=== PATIENT | female | born 1965 | race Caucasian/White ===

== ENCOUNTER 2017-09-10 17:25 | Emergency (ER) | payer BC, MEDICARE ==
[~2017-09-10] VITALS: Ht 165.1 cm; Wt 72.0 kg
[~2017-09-10 17:25] MED LIST: AMIT8CAP6 PO; AMOX500C PO; BACL10TA PO; CIPR750T2 PO; DEPO150I IM; DOXE25CA2 PO; FLUO10CA5 PO; FLUO20CA4 PO; LACTCAP8 PO; METR-1 PO; OMEP40CA2 PO; OXYBXL10 PO; SIMV20TA PO
[2017-09-10 17:32] VITALS: BP 142/87; PULSE 78; RESP 18; TEMP 98; O2SAT 100
[2017-09-10] MEDS ORDERED: PANT40TA3 PO (18:17)
[2017-09-10] MEDS ORDERED: FLUO40CA PO (18:17)
[2017-09-10] MEDS ORDERED: TOLT1TAB16 PO (18:17)
[2017-09-10] MEDS ORDERED: DICL50TA PO (18:17)
[2017-09-10] MEDS ORDERED: HYDR-755 PO (18:17)
[2017-09-10] MEDS ORDERED: LEVOTAB PO (18:17)
[2017-09-10] MEDS ORDERED: SODIUM CHLOR 0.9% 1000 ML INJ 1,000 ML IV SCH (18:27)
[2017-09-10] MEDS ORDERED: METOCLOPRAMIDE HCL 10 MG/2 ML VIAL IV PUSH ONE (18:30)
[2017-09-10] MEDS ORDERED: MORPHINE SULFATE 4 MG/ML INJ IV PUSH ONE ×2 (18:30→20:15)
[2017-09-10] MEDS ORDERED: SODIUM CHLORIDE 0.9% FLUSH 10 ML FLUSH IV FLUSH PRN (18:30)
--- NOTE | 2017-09-10 18:33 | PD ---
HPI Chief Complaint: Abdominal Pain Time Seen by Provider: 18:20 Travel History International Travel<30 days: No Contact w/Intl Traveler<30days: No Traveled to known affect area: No History of Present Illness HPI 52-year-old female presents for evaluation of abdominal pain. Symptoms started at 11 AM. The pain is sharp, constant, associated with nausea. She reports that she had a large bowel movement this afternoon and there were streaks of bright red blood in her bowel movement. Denies vomiting, fevers or chills, flank pain, chest pain or shortness of breath. She reports that she had a colonoscopy in 2016 which revealed polyps and diverticulosis and no other abnormalities. She has no other complaints at this time. PFSH Past Medical History Hx Anticoagulant Therapy: No Asthma: Yes (SEASONAL) Cardiovascular Problems: No Chemotherapy: No Cerebrovascular Accident: No Diabetes: No GERD: Yes Respiratory: No ?: Not : 2 Para: 2 Miscarriage: 0 : 0 Past Surgical History Abdominal Surgery: Yes (POLYP REMOVED) Hysterectomy: No Other Surgery: Yes (MASS REMOVED FROM THYROID) Social History Alcohol Use: Yes (SOCIALLY) Tobacco Use: No Substance Use: No Allergies-Medications (Allergen,Severity, Reaction): Coded Allergies: No Known Allergies (Unverified Allergy, Unknown, 09/10/17) Reported Meds & Prescriptions Reported Meds & Active Scripts Active Probiotic (Lactobacillus Acidophilus) 1 Cap Cap 1 Cap PO TIDAC Hydrocodone-Acetaminophen 5-325 mg Tab 1 Tab PO Q6H PRN Phenergan (Promethazine HCl) 25 Mg Tablet 25 Mg PO Q6H PRN Ciprofloxacin (Ciprofloxacin HCl) 750 Mg Tab 750 Mg PO BID 10 Days Flagyl (Metronidazole) 500 Mg Tab 500 Mg PO TID 10 Days Reported Levocetirizine 5 Mg Tab 5 Mg PO DAILY Diclofenac Potassium 50 Mg Tab 50 Mg PO BID Tolterodine (Tolterodine Tartrate) 2 Mg Tab 2 Mg PO DAILY Pantoprazole (Pantoprazole Sodium) 40 Mg Tab 40 Mg PO DAILY Hydroxyzine HCl 10 Mg Tab 10 Mg PO BID NEB Fluoxetine (Fluoxetine HCl) 40 Mg Cap 40 Cap PO DAILY Omeprazole 40 Mg Cap 40 Mg PO DAILY Ditropan XL 24 HR (Oxybutynin Chloride) 10 Mg Tab 10 Mg PO DAILY Doxepin (Doxepin HCl) 25 Mg Cap 25 Mg PO BID Simvastatin 20 Mg Tab 20 Mg PO DAILY Baclofen 10 Mg Tab 10 Mg PO TID Amitiza (Lubiprostone) 8 Mcg Cap 8 Mg PO BID Depo-Provera Inj (Medroxyprogesterone Inj) 150 Mg/Ml Inj 150 Mg IM ONCE Review of Systems Except as stated in HPI: all other systems reviewed are Neg Physical Exam Narrative GENERAL: Well-developed well-nourished female no acute distress SKIN: Warm and dry. HEAD: Atraumatic. Normocephalic. EYES: Pupils equal and round. No scleral icterus. No injection or drainage. ENT: No nasal bleeding or discharge. Mucous membranes pink and moist. NECK: Trachea midline. No JVD. CARDIOVASCULAR: Regular rate and rhythm. No murmur appreciated. RESPIRATORY: No accessory muscle use. Clear to auscultation. Breath sounds equal bilaterally. GASTROINTESTINAL: Abdomen soft, tender to palpation in the lower quadrants without guarding. Rectal examination in the presence of a female nurse reveals no large amount of stool in the rectal vault, there was a small amount of blood which is Hemoccult positive. No obvious external hemorrhoids or fissures. MUSCULOSKELETAL: No obvious deformities. No clubbing. No cyanosis. No edema. NEUROLOGICAL: Awake and alert. No obvious cranial nerve deficits. Motor grossly within normal limits. Normal speech. PSYCHIATRIC: Appropriate mood and affect; insight and judgment normal. Data Data Last Documented VS Vital Signs Date Time Temp Pulse Resp B/P (MAP) Pulse Ox O2 Delivery O2 Flow Rate FiO2 09/10/17 17:32 98.0 78 18 142/87 (105) 100 Orders Orders Complete Blood Count With Diff (09/10/17 18:27) Comprehensive Metabolic Panel (09/10/17 18:27) Lipase (09/10/17 18:27) Prothrombin Time / Inr (Pt) (09/10/17 18:27) Act Partial Throm Time (Ptt) (09/10/17 18:27) Urinalysis - C+S If Indicated (09/10/17 18:27) Ct Abd/Pel W Iv Contrast(Rout) (09/10/17 18:27) Iv Access Insert/Monitor (09/10/17 18:27) Ecg Monitoring (09/10/17 18:27) Oximetry (09/10/17 18:27) Morphine Inj (Morphine Inj) (09/10/17 18:30) Sodium Chlor 0.9% 1000 Ml Inj (Ns 1000 M (09/10/17 18:27) Sodium Chloride 0.9% Flush (Ns Flush) (09/10/17 18:30) Metoclopramide Inj (Reglan Inj) (09/10/17 18:30) Iohexol 350 Inj (Omnipaque 350 Inj) (09/10/17 19:37) Ciprofloxacin 400 Mg Premix (Cipro 400 M (09/10/17 20:15) Metronidazole 500 Mg Inj (Flagyl 500 Mg (09/10/17 20:15) Morphine Inj (Morphine Inj) (09/10/17 20:15) Ed Discharge Order (09/10/17 20:47) Labs Laboratory Tests Test 09/10/17 18:30 09/10/17 19:59 White Blood Count 12.7 TH/MM3 Red Blood Count 4.41 MIL/MM3 Hemoglobin 13.2 GM/DL Hematocrit 38.9 % Mean Corpuscular Volume 88.2 FL Mean Corpuscular Hemoglobin 29.9 PG Mean Corpuscular Hemoglobin Concent 33.9 % Red Cell Distribution Width 13.7 % Platelet Count 241 TH/MM3 Mean Platelet Volume 7.3 FL Neutrophils (%) (Auto) 91.5 % Lymphocytes (%) (Auto) 4.8 % Monocytes (%) (Auto) 3.6 % Eosinophils (%) (Auto) 0.0 % Basophils (%) (Auto) 0.1 % Neutrophils # (Auto) 11.6 TH/MM3 Lymphocytes # (Auto) 0.6 TH/MM3 Monocytes # (Auto) 0.5 TH/MM3 Eosinophils # (Auto) 0.0 TH/MM3 Basophils # (Auto) 0.0 TH/MM3 CBC Comment DIFF FINAL Differential Comment Prothrombin Time 10.0 SEC Prothromb Time International Ratio 1.0 RATIO Activated Partial Thromboplast Time 24.3 SEC Blood Urea Nitrogen 15 MG/DL Creatinine 0.83 MG/DL Random Glucose 117 MG/DL Total Protein 8.0 GM/DL Albumin 3.8 GM/DL Calcium Level 9.4 MG/DL Alkaline Phosphatase 86 U/L Aspartate Amino Transf (AST/SGOT) 17 U/L Alanine Aminotransferase (ALT/SGPT) 26 U/L Total Bilirubin 0.3 MG/DL Sodium Level 135 MEQ/L Potassium Level 4.4 MEQ/L Chloride Level 100 MEQ/L Carbon Dioxide Level 25.4 MEQ/L Anion Gap 10 MEQ/L Estimat Glomerular Filtration Rate 73 ML/MIN Lipase 91 U/L Urine Color YELLOW Urine Turbidity CLEAR Urine pH 5.5 Urine Specific Steele 1.042 Urine Protein NEG mg/dL Urine Glucose (UA) NEG mg/dL Urine Ketones NEG mg/dL Urine Occult Blood NEG Urine Nitrite NEG Urine Bilirubin NEG Urine Urobilinogen LESS THAN 2.0 MG/DL Urine Leukocyte Esterase NEG Urine WBC LESS THAN 1 /hpf Urine Mucus FEW /lpf Microscopic Urinalysis Comment CULT NOT INDICATED MDM Medical Decision Making Medical Screen Exam Complete: Yes Emergency Medical Condition: Yes Medical Record Reviewed: Yes Differential Diagnosis Diverticulitis, colitis, appendicitis, cystitis, pyelonephritis Narrative Course Lab work, urinalysis, CT abdomen and pelvis ordered. The patient was given IV analgesics and Reglan and fluids. CT abdomen and pelvis reveals CONCLUSION: 1. Circumferential bowel wall thickening involving distal transverse and descending colon most characteristic of colitis. There is no obstruction. 2. Unremarkable gallbladder. CBC reveals WBC count of 12.7 with 91% neutrophils, CMP is essentially unremarkable. Patient is not febrile, tachycardic, there is no apparent complications of colitis, therefore she will be treated as an outpatient. She will be given a dose of IV Cipro and Flagyl here and discharged with prescriptions for the same as well as an antiemetic and analgesic. Discussed signs and symptoms that would warrant returning to the emergency room. She is stable for discharge and outpatient follow-up. Diagnosis Primary Impression: Colitis Additional Instructions: Medication as prescribed. Stay well hydrated and well-nourished. Follow-up with her primary care physician in the next few days. Return for any acutely new or worsening symptoms. Med/Other Pt SpecificInfo: Prescription(s) given Scripts Lactobacillus Acidophilus (Probiotic) 1 Cap Cap 1 CAP PO TIDAC for Nutritional Supplement, #90 CAP 0 Refills Prov: Noemí Bridges MD 09/10/17 Hydrocodone-Acetaminophen (Hydrocodone-Acetaminophen) 5-325 mg Tab 1 TAB PO Q6H Y for PAIN, #15 TAB 0 Refills Prov: Noemí Bridges MD 09/10/17 Promethazine (Phenergan) 25 Mg Tablet 25 MG PO Q6H Y for NAUSEA OR VOMITING, #20 TAB 0 Refills Prov: Noemí Bridges MD 09/10/17 Ciprofloxacin (Ciprofloxacin) 750 Mg Tab 750 MG PO BID for Infection for 10 Days, TAB 0 Refills Prov: Noemí Bridges MD 09/10/17 Metronidazole (Flagyl) 500 Mg Tab 500 MG PO TID for Infection for 10 Days, TAB 0 Refills Prov: Noemí Bridges MD 09/10/17 Disposition: 01 DISCHARGE HOME Condition: Stable Kwasi Alonso September 10, 2017 18:33
[2017-09-10 18:57] LABS: AUTOMATED NEUTROPHIL # 11.6 TH/MM3 (1.8-7.7); BASOPHIL % 0.1 % (0.0-2.0); HEMATOCRIT 38.9 % (35.0-46.0); HEMOGLOBIN 13.2 GM/DL (11.6-15.3); LYMPH % 4.8 % (9.0-44.0); LYMPHOCYTE # 0.6 TH/MM3 (1.0-4.8); MEAN CELL VOLUME 88.2 FL (80.0-100.0); MEAN CORPUSCULAR HEMOGLOBIN 29.9 PG (27.0-34.0); MEAN CORPUSCULAR HGB CONC 33.9 % (32.0-36.0); MEAN PLATELET VOLUME 7.3 FL (7.0-11.0); MONO % 3.6 % (0.0-8.0); MONOCYTE # 0.5 TH/MM3 (0-0.9); NEUT % 91.5 % (16.0-70.0); PLATELET COUNT 241 TH/MM3 (150-450); RED BLOOD COUNT 4.41 MIL/MM3 (4.00-5.30); RED CELL DISTRIBUTION WIDTH 13.7 % (11.6-17.2); WHITE BLOOD COUNT 12.7 TH/MM3 (4.0-11.0)
[2017-09-10 19:13] LABS: ALBUMIN 3.8 GM/DL (3.4-5.0); AST (GOT) 17 U/L (15-37); BICARBONATE 25.4 MEQ/L (21.0-32.0); BLOOD UREA NITROGEN 15 MG/DL (7-18); CALCIUM 9.4 MG/DL (8.5-10.1); CHLORIDE 100 MEQ/L (98-107); CREATININE 0.83 MG/DL (0.50-1.00); GLOMERULAR FILTRATION RATE 73 ML/MIN (>89); GLUCOSE,RANDOM 117 MG/DL (74-106); SODIUM (NA) 135 MEQ/L (136-145)
[2017-09-10 19:14] LABS: ALT (GPT) 26 U/L (10-53)
[2017-09-10 19:16] LABS: ALKALINE PHOSPHATASE 86 U/L (45-117); TOTAL BILIRUBIN ADULT 0.3 MG/DL (0.2-1.0)
[2017-09-10] MEDS ORDERED: IOHEXOL 350 MG/ML 10 ML VIAL (for RAD DIAG) IVCONTRAST ONE (19:37)
--- NOTE | 2017-09-10 19:56 | RADRPT ---
EXAM DATE: 09/10/2017 7:39 PM EDT AGE/SEX: 52 years / Female INDICATIONS: Weakness and abdominal pain with blood in stool. CLINICAL DATA: This is the patient's initial encounter. Patient reports that signs and symptoms have been present for 1 day and indicates a pain score of 10/10. MEDICAL/SURGICAL HISTORY: Gastroesophageal reflux disease. Fusion, lumbar. ORAL CONTRAST: No oral contrast ingested. RADIATION DOSE: 6.71 CTDI (mGy) [place] [facility] [place] 04/19/2016. . TECHNIQUE: Multiple contiguous axial images were obtained through the abdomen and pelvis following b olus infusion of 95 ml Omnipaque 350 (iohexol) nonionic water-soluble contrast as a single exam dos e. No oral contrast ingested. Using automated exposure control and adjustment of the mA and/or kV ac cording to patient size, the radiation dose was kept as low as reasonably achievable to obtain optima l diagnostic quality images. FINDINGS: Lower Lungs: The visualized lower lungs are clear. Liver: The liver has a homogeneous density without space-occupying lesion. There is no dilation of th e biliary tree. The gallbladder is unremarkable. Spleen: Homogeneous density without enlargement. Pancreas: Unremarkable without mass or calcification. Kidneys: Normal in size and shape. No evidence of mass or hydronephrosis. Adrenal Glands: Unremarkable. Aorta: The aorta and proximal iliac vessels are grossly unremarkable without aneurysmal dilation. Bowel/Mesentery: The small bowel is unremarkable in appearance. There is circumferential bowel wall thickening involving portions distal transverse colon as well as the descending colon. This measures up to at least a centimeter in greatest thickness. There is no definite inflammatory change. There ar e several small scattered diverticuli. There is no free air or fluid. Abdominal Wall: Intact. Retroperitoneum: No evidence of adenopathy in the retrocrural, para-aortic, or deep pelvic regions. Bladder: Contours are smooth. Reproductive Organs: No abnormal masses or calcifications seen. Inguinal: The inguinal region is unremarkable without evidence of adenopathy. Bony Structures: Unremarkable. CONCLUSION: 1. Circumferential bowel wall thickening involving distal transverse and descending colon most katharina cteristic of colitis. There is no obstruction. 2. Unremarkable gallbladder. Electronically signed by: Zaid Johnson MD 09/10/2017 7:54 PM EDT
[2017-09-10] MEDS ORDERED: PROM25TA10 PO (20:08)
[2017-09-10] MEDS ORDERED: CIPR750T2 PO (20:08)
[2017-09-10] MEDS ORDERED: METR-1 PO (20:08)
[2017-09-10] MEDS ORDERED: HYDR-3516 PO (20:08)
[2017-09-10] MEDS ORDERED: LACTCAP8 PO (20:14)
[2017-09-10] MEDS ORDERED: metroNIDAZOLE 500 MG INJ 100 ML IV ONE (20:15)
[2017-09-10] MEDS ORDERED: CIPROFLOXACIN 400 MG PREMIX 200 ML IV ONE (20:15)
[2017-09-10 20:36] LABS: BILIRUBIN, URINE NEG (NEG); BLOOD, URINE NEG (NEG); GLUCOSE,URINE NEG (NEG); KETONE, URINE NEG (NEG); MUCUS URINE FEW /lpf (OCC); NITRITE,URINE NEG (NEG); PH, URINE 5.5 (5.0-8.5); URINE COLOR YELLOW (YELLW/STRAW); URINE LEUKOCYTE ESTERASE NEG (NEG)
== END 2017-09-10 23:05 | disposition home or self-care (01) ==
LOC: NEPC 17:25
DX: K52.9 Noninfective gastroenteritis and colitis, unspecified (principal); J45.909 Unspecified asthma, uncomplicated; K21.9 Gastro-esophageal reflux disease without esophagitis
CPT/HCPCS: 74177; 80053; 81001; 83690; 85025; 85610; 85730; 96361; 96374; 96375; 96376; 99284; J0744; J2270; J2765; J7030; Q9967